=== PATIENT | male | born 2000 | race Caucasian/White ===

== ENCOUNTER 2021-10-26 17:11 | Emergency (ER) | payer MEDICAID, SELFPAY ==
[2021-10-26 17:23] VITALS: BP 110/60; PULSE 60; O2SAT 99
== END 2021-10-26 20:02 | disposition left against medical advice (07) ==
PROVIDERS: Emergency Provider Emergency Medicine
DX: R42 Dizziness and giddiness (principal); F12.90 Cannabis use, unspecified, uncomplicated